=== PATIENT | male | born 1935 ===

== ENCOUNTER 2016-09-05 06:29 | Day surgery (SDC) | payer MEDICARE ==
[2016-09-05 06:49] VITALS: BMI 22.8
[2016-09-05 06:58] VITALS: TEMP 97
[2016-09-05] MEDS ORDERED: Propofol 10 mg/ml Inj (20 ML) ONE (08:29)
[2016-09-05] MEDS ORDERED: Phenylephrine 10 mg/ml Inj ONE (08:29)
--- NOTE | 2016-09-05 08:32 | CP.SDSHP ---
Same Day Surgery H & P - History Proposed Procedure: colonoscopy Pre-Op Diagnosis: h/o colon polyps - Previous Medical/Surgical History Cardiac: Hypertension, Other (hypercholesterolemia, diverticulosis, internal hemorrhoids) Pulmonary: Asthma Previous Surgical History: denies - Allergies Allergies: Allergies No Known Allergies Allergy (Verified 09/01/15 13:17) - Physical Exam Vital Signs: Vital Signs 09/05/16 09/05/16 06:50 08:28 Temperature 97 F L 97 F L Pulse Rate 69 69 Respiratory 19 19 Rate Blood Pressure 137/64 137/64 O2 Sat by Pulse 98 98 Oximetry Mental Status: Alert & Oriented x3 Neuro: WNL Heart: WNL Lungs: WNL GI: WNL - Impression Impression: h/o colon polyps Pt. Evaluated Today:Candidate for Anesthesia & Procedure: Yes - Date & Time Date: 09/05/16 Time: 08:32 Short Stay Discharge - Short Stay Discharge Admitting Diagnosis/Reason for Visit: PERSONAL HISTORY OF COLONIC POLYPS Disposition: HOME/ ROUTINE
[2016-09-05 09:50] VITALS: RESP 16; O2SAT 100
[2016-09-05 10:37] VITALS: BP 115/60; PULSE 59
== END 2016-09-05 10:11 | disposition home or self-care (01) ==
LOC: C.ENDO 06:29
PROVIDERS: ATTEND Internal Medicine Gastroenterology
DX: K57.90 Diverticulosis of intestine, part unspecified, without perforation or abscess without bleeding (principal); K64.8 Other hemorrhoids; Z86.010 Personal history of colon polyps
CPT/HCPCS: 45378; J2370; J2704